=== PATIENT | female | born 1980 ===

== ENCOUNTER 2018-06-03 08:35 | Outpatient (CLI) | payer OTHER | END 2018-06-03 08:39 | disposition home or self-care (01) | LOC: SONOGRAMA 08:35 | DX: E04.8 Other specified nontoxic goiter (principal) ==

== ENCOUNTER 2018-12-10 08:10 | Outpatient (CLI) | payer OTHER | END 2018-12-10 08:13 | disposition home or self-care (01) | LOC: SONOGRAMA 08:10 | DX: E04.1 Nontoxic single thyroid nodule (principal) ==

== ENCOUNTER 2021-11-14 07:54 | Outpatient (CLI) | payer OTHER | END 2021-11-14 07:57 | disposition home or self-care (01) | LOC: SONOGRAMA 07:54 | PROVIDERS: ATTEND Pathology Anatomic Pathology & Clinical Pathology | DX: E04.8 Other specified nontoxic goiter (principal) ==